=== PATIENT | male | born 1970 | race Hispanic/Latino ===

== ENCOUNTER 2018-05-01 14:28 | Emergency (ER) | payer SELFPAY ==
--- NOTE | 2018-05-01 15:40 | RAD ---
RADIOGRAPH RIGHT HAND THREE VIEWS: Date: 05-01-18 Time: 2:51 p.m. History: 47-year-old male with persistent post-traumatic pain of the fifth digit after trauma 10 days ago. Comparison: Prior radiographs were reportedly performed at [facility] and are not available for comparison. FINDINGS: There is a splint covering the fifth digit, fifth metacarpal, and the ulnar side of the wrist, obscur ing fine bony detail. There is an oblique fracture at the proximal metaphysis of the fifth proximal p halanx, with dorsal and ulnar angulation, and approximately 20% shaft-width volar-radial displacement , of the distal fragment. No disruption of the fifth MCP joint surface is identified. IMPRESSION: Recent, subacute or acute, traumatic, displaced, fracture of the proximal metaphysis of the fifth pro ximal phalanx. POS: MARIAH
== END 2018-05-01 17:40 | disposition home or self-care (01) ==
LOC: MADERS 14:28
DX: S62.616A Displaced fracture of proximal phalanx of right little finger, initial encounter for closed fracture (principal); W23.0XXA Caught, crushed, jammed, or pinched between moving objects, initial encounter